=== PATIENT | female | born 1950 | race Caucasian/White ===

== ENCOUNTER 2021-04-16 14:18 | Emergency (ER) | payer OTHER ==
[~2021-04-16] VITALS: Ht 167.6 cm; Wt 67.1 kg
[2021-04-16 14:39] VITALS: BP 162/97
[2021-04-16] MEDS ORDERED: METHOCARBAMOL500 M2 PO (15:13)
[2021-04-16] MEDS ORDERED: NORCO5 PO (15:13)
== END 2021-04-16 15:16 | disposition home or self-care (01) ==
LOC: ER 14:18
DX: S76.811A Strain of other specified muscles, fascia and tendons at thigh level, right thigh, initial encounter (principal); I10 Essential (primary) hypertension; Z72.89 Other problems related to lifestyle; W00.0XXA Fall on same level due to ice and snow, initial encounter; Y93.29 Activity, other involving ice and snow; Y92.511 Restaurant or cafe as the place of occurrence of the external cause; Y99.8 Other external cause status